=== PATIENT | male | born 1945 | race Caucasian/White ===

== ENCOUNTER → 2016-02-21 | Outpatient (CLI) | payer OTHER ==
[~2016-02-21] VITALS: Ht 180.3 cm; Wt 78.0 kg
[~2016-02-21] MED LIST: ANALGESIC325 M1 PO; ASPIR-MOX 325325 M1 PO; ASPIRIN E.C.81 M1 PO; ASPIRIN81 M1 PO; COREG12.5 M1 PO; CYCLOBENZAPRINE10 MG PO; ECOTRIN325 MG PO; Habitrol,Nicoderm CQ TD; LIPITOR20 MG PO; LISINOPRIL40 MG PO; LOPRESSOR100 M1 PO; LOPRESSOR25 MG PO; Lasix PO; METOPROLOL TART50 MG PO; NOHOMEMEDS; NORVASC5 MG PO; PRAVASTATIN SOD20 MG PO; ROCEPHIN 2 GM VI2 GM IV; TRAMADOL HCL50 MG PO; Zestril,Prinivil PO
== END | disposition home or self-care (01) ==
LOC: AMB 14:46
DX: D64.9 Anemia, unspecified (principal); K22.70 Barrett's esophagus without dysplasia; K25.9 Gastric ulcer, unspecified as acute or chronic, without hemorrhage or perforation; K29.90 Gastroduodenitis, unspecified, without bleeding; K62.5 Hemorrhage of anus and rectum; C20 Malignant neoplasm of rectum; D12.5 Benign neoplasm of sigmoid colon; I25.10 Atherosclerotic heart disease of native coronary artery without angina pectoris; Z95.1 Presence of aortocoronary bypass graft; I10 Essential (primary) hypertension; F17.200 Nicotine dependence, unspecified, uncomplicated
CPT/HCPCS: 88305; 88342 TC; B4087; J2250; J3010

== ENCOUNTER 2016-04-13 08:31 | Emergency (ER) | payer OTHER ==
[~2016-04-13] VITALS: Ht 180.3 cm; Wt 74.0 kg
[2016-04-13 10:01] LABS: MCH 26.8 PG (29.0-34.0); MCHC 32.7 G/DL (30.0-36.0); MCV 81.9 FL (86-99); MEAN PLAT.VOLUME 9.5 uM^3 (9.0-12.4); PLATELET COUNT 160 K/uL (156-360); RBC DIS.WIDTH-CV 16.5 % (11.8-14.6); RBC DIS.WIDTH-SD 43.8 % (39-53); RED BLOOD COUNT 4.03 M/uL (4.00-5.50); WHITE BLOOD COUNT 4.7 K/uL (4.1-10.2)
[2016-04-13 10:02] LABS: EOSINOPHIL (%) 4.2 % (0-5); EOSINOPHIL COUNT 0.2 K/uL (0-0.3); IMMATURE GRANULOCYTE (%) 0.2 % (0.0-0.7); IMMATURE GRANULOCYTE COUNT 0.1 K/uL; LYMPHOCYTE COUNT 0.9 K/uL (1.0-2.8); MONOCYTE COUNT 0.8 K/uL (0-0.8); NEUTROPHIL (%) 61.1 % (45-76); NEUTROPHIL COUNT 2.9 K/uL (1.8-6.4)
[2016-04-13 10:07] LABS: INTER. NORMALIZED RATIO 1.1; PROTHROMBIN TIME 10.9 (9.2-11.2)
[2016-04-13 10:08] LABS: CHLORIDE 107 mEq/L (99-109); POTASSIUM 4.6 mEq/L (3.7-5.4); SODIUM 138 mEq/L (136-147)
[2016-04-13 10:10] LABS: GLUCOSE 109 mg/dL (70-99)
[2016-04-13 10:11] LABS: ANION GAP 8 MEQ/L (2-14)
[2016-04-13 10:12] LABS: TOTAL BILIRUBIN 0.5 mg/dL (0.0-1.0)
[2016-04-13 10:13] LABS: ALKALINE PHOSPHATASE 63 IU/L (3-129)
[2016-04-13 10:14] LABS: GFR ESTIMATE (CALCULATED) 43 mL/min/
[2016-04-13 10:15] LABS: DIRECT BILIRUBIN 0.2 mg/dL (0.0-0.3); UREA NITROGEN (BUN) 24 mg/dL (9-23)
[2016-04-13 10:17] LABS: LIPASE 15 U/L (1.0-51.0)
[2016-04-13 13:24] VITALS: BP 123/61
== END 2016-04-13 13:27 | disposition home or self-care (01) ==
LOC: EME → EDBD 08:31 → EME 13:27
PROVIDERS: Emergency Medicine
DX: K92.1 Melena (principal); C18.9 Malignant neoplasm of colon, unspecified; Z79.899 Other long term (current) drug therapy; E78.5 Hyperlipidemia, unspecified; I10 Essential (primary) hypertension; Z95.1 Presence of aortocoronary bypass graft; Z79.82 Long term (current) use of aspirin; F17.200 Nicotine dependence, unspecified, uncomplicated
CPT/HCPCS: 74176; 80048; 80076; 83690; 85025; 85610; 85730; 86850; 86900; 86901; 99281; 99284

== ENCOUNTER 2016-09-12 22:10 | Inpatient (IN) | payer OTHER ==
[~2016-09-12] VITALS: Ht 180.3 cm; Wt 83.7 kg
[~2016-09-12 22:10] MED LIST changes: +COLACE100 MG PO; +NORVASC10 MG PO; +PRAVACHOL20 MG PO
[2016-09-13 06:01] VITALS: BP 156/84
[2016-09-13 12:49] LABS: HEMATOCRIT 31.5 % (38.0-50.0); MCH 27.8 PG (29.0-34.0); MCHC 32.7 G/DL (30.0-36.0); MCV 85.1 FL (86-99); MEAN PLAT.VOLUME 9.6 uM^3 (9.0-12.4); RBC DIS.WIDTH-CV 15.2 % (11.8-14.6); RBC DIS.WIDTH-SD 46.7 % (39-53); WHITE BLOOD COUNT 10.5 K/uL (4.1-10.2)
[2016-09-13 12:51] LABS: PLATELET COUNT 141 K/uL (156-360)
[2016-09-13 14:40] VITALS: BP 147/67
[2016-09-13 18:22] LABS: HEMATOCRIT 34.8 % (38.0-50.0); MCH 26.7 PG (29.0-34.0); MCHC 31.9 G/DL (30.0-36.0); MCV 83.9 FL (86-99); MEAN PLAT.VOLUME 10.1 uM^3 (9.0-12.4); PLATELET COUNT 154 K/uL (156-360); RBC DIS.WIDTH-CV 14.8 % (11.8-14.6); RBC DIS.WIDTH-SD 45.3 % (39-53); RED BLOOD COUNT 4.15 M/uL (4.00-5.50); WHITE BLOOD COUNT 10.5 K/uL (4.1-10.2)
[2016-09-13 19:54] VITALS: BP 156/72
[2016-09-14] VITALS (9 sets, daily range): BP systolic 124–165; BP diastolic 54–74
[2016-09-14 06:46] LABS: HEMATOCRIT 33.9 % (38.0-50.0); MCH 27.5 PG (29.0-34.0); MCHC 32.7 G/DL (30.0-36.0); MCV 83.9 FL (86-99); MEAN PLAT.VOLUME 10.1 uM^3 (9.0-12.4); PLATELET COUNT 147 K/uL (156-360); RBC DIS.WIDTH-CV 14.7 % (11.8-14.6); RBC DIS.WIDTH-SD 45.4 % (39-53); RED BLOOD COUNT 4.04 M/uL (4.00-5.50)
[2016-09-14 07:17] LABS: ANION GAP 5 MEQ/L (2-14); CHLORIDE 101 MEQ/L (99-109); GFR ESTIMATE (CALCULATED) > 59 mL/min/; GLUCOSE 149 mg/dL (70-99); MAGNESIUM 1.6 mg/dl (1.3-2.7); POTASSIUM 4.3 MEQ/L (3.7-5.4); SAMPLE HEMOLYSIS CHECK 0; SAMPLE ICTERIC CHECK 0; SAMPLE LIPEMIA CHECK 0; SODIUM 135 MEQ/L (136-147); UREA NITROGEN (BUN) 11 mg/dL (9-23)
[2016-09-14 13:14] LABS: BASE EXCESS 2.1 mEq/L (-3 to +3); BICARBONATE 27.3 mEq/L (22-26); CARBOXY HGB 1.6 % (0-5); COMMENTS - BLOOD GASES A+C+; DEVICE NRBR; FI02 100 %; METHEMOGLOBIN 1.4 % (0-1.5); O2 FLOW 15 L/MIN; PCO2 44 mm Hg (35-45); PO2 89 mm Hg (80-100); SITE RRA
[2016-09-14 13:15] LABS: TOTAL RESP RATE 20 resp/min
[2016-09-14 13:26] LABS: HEMATOCRIT 32.2 % (38.0-50.0); MCH 28.1 PG (29.0-34.0); MCHC 33.5 G/DL (30.0-36.0); MCV 83.6 FL (86-99); MEAN PLAT.VOLUME 9.8 uM^3 (9.0-12.4); PLATELET COUNT 143 K/uL (156-360); RBC DIS.WIDTH-CV 15.1 % (11.8-14.6); RBC DIS.WIDTH-SD 45.6 % (39-53); RED BLOOD COUNT 3.85 M/uL (4.00-5.50)
[2016-09-14 13:36] LABS: ANION GAP 6 MEQ/L (2-14); CHLORIDE 102 MEQ/L (99-109); POTASSIUM 4.4 MEQ/L (3.7-5.4); SAMPLE HEMOLYSIS CHECK 0; SAMPLE ICTERIC CHECK 0; SAMPLE LIPEMIA CHECK 0; SODIUM 136 MEQ/L (136-147); TOTAL BILIRUBIN 0.6 MG/DL (0.0-1.0)
[2016-09-14 13:42] LABS: ALKALINE PHOSPHATASE 58 IU/L (3-129); GFR ESTIMATE (CALCULATED) > 59 mL/min/; GLUCOSE 115 mg/dL (70-99); UREA NITROGEN (BUN) 9 mg/dL (9-23)
[2016-09-14 13:46] LABS: TROP-I INTERPRETATION NEGATIVE; TROPONIN-I 0.02 ng/mL (0.0-0.30)
[2016-09-14 14:57] LABS: METH RESISTANT S AUREUS PCR NEGATIVE (NEGATIVE)
[2016-09-14 15:03] LABS: PROBE CHECK PASS; SPECIMEN PROCESSING CONTROL PASS
[2016-09-15] VITALS (15 sets, daily range): BP systolic 106–167; BP diastolic 53–76
[2016-09-15 05:58] LABS: HEMATOCRIT 31.2 % (38.0-50.0); MCH 26.8 PG (29.0-34.0); MCHC 32.1 G/DL (30.0-36.0); MCV 83.6 FL (86-99); MEAN PLAT.VOLUME 10.3 uM^3 (9.0-12.4); PLATELET COUNT 133 K/uL (156-360); RBC DIS.WIDTH-CV 14.7 % (11.8-14.6); RBC DIS.WIDTH-SD 45.2 % (39-53); RED BLOOD COUNT 3.73 M/uL (4.00-5.50); WHITE BLOOD COUNT 7.5 K/uL (4.1-10.2)
[2016-09-15 06:30] LABS: ANION GAP 6 MEQ/L (2-14); CHLORIDE 102 MEQ/L (99-109); GFR ESTIMATE (CALCULATED) > 59 mL/min/; GLUCOSE 105 mg/dL (70-99); MAGNESIUM 1.7 mg/dl (1.3-2.7); POTASSIUM 3.6 MEQ/L (3.7-5.4); SAMPLE HEMOLYSIS CHECK 0; SAMPLE ICTERIC CHECK 0; SAMPLE LIPEMIA CHECK 0; SODIUM 137 MEQ/L (136-147); UREA NITROGEN (BUN) 7 mg/dL (9-23)
[2016-09-16] VITALS (21 sets, daily range): BP systolic 101–145; BP diastolic 57–72
[2016-09-16 05:56] LABS: EOSINOPHIL (%) 1.2 % (0-5); EOSINOPHIL COUNT 0.1 K/uL (0-0.3); HEMATOCRIT 31.8 % (38.0-50.0); IMMATURE GRANULOCYTE (%) 0.9 % (0.0-0.7); IMMATURE GRANULOCYTE COUNT 0.1 K/uL; INSTRUMENT ABS NEUTROPHIL CT 4.9 K/uL; LYMPHOCYTE COUNT 0.6 K/uL (1.0-2.8); MCH 26.5 PG (29.0-34.0); MCHC 32.1 G/DL (30.0-36.0); MCV 82.6 FL (86-99); MEAN PLAT.VOLUME 9.8 uM^3 (9.0-12.4); MONOCYTE (%) 14.8 % (3-12); NEUTROPHIL (%) 73.7 % (45-76); NEUTROPHIL COUNT 4.9 K/uL (1.8-6.4); PLATELET COUNT 147 K/uL (156-360); RBC DIS.WIDTH-CV 14.7 % (11.8-14.6); RBC DIS.WIDTH-SD 44.9 % (39-53); RED BLOOD COUNT 3.85 M/uL (4.00-5.50); WHITE BLOOD COUNT 6.6 K/uL (4.1-10.2)
[2016-09-16 06:22] LABS: ANION GAP 7 MEQ/L (2-14); CHLORIDE 104 MEQ/L (99-109); GFR ESTIMATE (CALCULATED) > 59 mL/min/; GLUCOSE 100 mg/dL (70-99); POTASSIUM 3.8 MEQ/L (3.7-5.4); SAMPLE HEMOLYSIS CHECK 0; SAMPLE ICTERIC CHECK 0; SAMPLE LIPEMIA CHECK 0; SODIUM 137 MEQ/L (136-147); UREA NITROGEN (BUN) 10 mg/dL (9-23)
[2016-09-17] VITALS (13 sets, daily range): BP systolic 87–133; BP diastolic 53–71
[2016-09-17 06:13] LABS: HEMATOCRIT 32.6 % (38.0-50.0); MCH 27.9 PG (29.0-34.0); MCHC 33.4 G/DL (30.0-36.0); MCV 83.4 FL (86-99); MEAN PLAT.VOLUME 10.1 uM^3 (9.0-12.4); PLATELET COUNT 177 K/uL (156-360); RBC DIS.WIDTH-CV 14.6 % (11.8-14.6); RBC DIS.WIDTH-SD 44.5 % (39-53); RED BLOOD COUNT 3.91 M/uL (4.00-5.50); WHITE BLOOD COUNT 5.3 K/uL (4.1-10.2)
[2016-09-17 06:41] LABS: ANION GAP 9 MEQ/L (2-14); CHLORIDE 103 MEQ/L (99-109); GFR ESTIMATE (CALCULATED) 49 mL/min/; GLUCOSE 107 mg/dL (70-99); POTASSIUM 3.8 MEQ/L (3.7-5.4); SAMPLE HEMOLYSIS CHECK 0; SAMPLE ICTERIC CHECK 0; SAMPLE LIPEMIA CHECK 0; SODIUM 135 MEQ/L (136-147); UREA NITROGEN (BUN) 17 mg/dL (9-23)
[2016-09-17 06:46] LABS: MAGNESIUM 2.1 mg/dl (1.3-2.7)
[2016-09-18] VITALS (12 sets, daily range): BP systolic 117–157; BP diastolic 55–99
[2016-09-18 04:47] LABS: HEMATOCRIT 30.4 % (38.0-50.0); MCH 26.7 PG (29.0-34.0); MCHC 32.2 G/DL (30.0-36.0); MCV 82.8 FL (86-99); MEAN PLAT.VOLUME 9.3 uM^3 (9.0-12.4); PLATELET COUNT 150 K/uL (156-360); RBC DIS.WIDTH-CV 14.4 % (11.8-14.6); RBC DIS.WIDTH-SD 43.7 % (39-53); RED BLOOD COUNT 3.67 M/uL (4.00-5.50); WHITE BLOOD COUNT 5.5 K/uL (4.1-10.2)
[2016-09-18 04:59] LABS: CHLORIDE 110 mEq/L (99-109); POTASSIUM 4.1 mEq/L (3.7-5.4); SODIUM 138 mEq/L (136-147)
[2016-09-18 05:00] LABS: GLUCOSE 99 mg/dL (70-99)
[2016-09-18 05:02] LABS: ANION GAP 6 MEQ/L (2-14)
[2016-09-18 05:04] LABS: GFR ESTIMATE (CALCULATED) > 59 mL/min/
[2016-09-18 05:05] LABS: UREA NITROGEN (BUN) 17 mg/dL (9-23)
[2016-09-19] VITALS (9 sets, daily range): BP systolic 119–154; BP diastolic 53–69
[2016-09-19 05:29] LABS: MCH 26.9 PG (29.0-34.0); MCHC 32.5 G/DL (30.0-36.0); MCV 82.8 FL (86-99); MEAN PLAT.VOLUME 9.6 uM^3 (9.0-12.4); PLATELET COUNT 171 K/uL (156-360); RBC DIS.WIDTH-CV 14.4 % (11.8-14.6); RBC DIS.WIDTH-SD 43.2 % (39-53); RED BLOOD COUNT 3.38 M/uL (4.00-5.50); WHITE BLOOD COUNT 5.8 K/uL (4.1-10.2)
[2016-09-19 05:51] LABS: ANION GAP 7 MEQ/L (2-14); CHLORIDE 111 MEQ/L (99-109); GFR ESTIMATE (CALCULATED) > 59 mL/min/; GLUCOSE 96 mg/dL (70-99); SAMPLE HEMOLYSIS CHECK 0; SAMPLE ICTERIC CHECK 0; SAMPLE LIPEMIA CHECK 0; SODIUM 140 MEQ/L (136-147); UREA NITROGEN (BUN) 9 mg/dL (9-23)
[2016-09-20 03:16] VITALS: BP 118/58
[2016-09-20 06:53] LABS: MCH 26.9 PG (29.0-34.0); MCHC 32.4 G/DL (30.0-36.0); MCV 82.9 FL (86-99); MEAN PLAT.VOLUME 9.2 uM^3 (9.0-12.4); PLATELET COUNT 190 K/uL (156-360); RBC DIS.WIDTH-CV 14.4 % (11.8-14.6); RBC DIS.WIDTH-SD 43.8 % (39-53); WHITE BLOOD COUNT 4.3 K/uL (4.1-10.2)
[2016-09-20 07:12] LABS: ANION GAP 7 MEQ/L (2-14); CHLORIDE 109 MEQ/L (99-109); GFR ESTIMATE (CALCULATED) > 59 mL/min/; GLUCOSE 101 mg/dL (70-99); POTASSIUM 3.8 MEQ/L (3.7-5.4); SAMPLE HEMOLYSIS CHECK 0; SAMPLE ICTERIC CHECK 0; SAMPLE LIPEMIA CHECK 0; SODIUM 138 MEQ/L (136-147); UREA NITROGEN (BUN) 5 mg/dL (9-23)
[2016-09-20 08:24] VITALS: BP 132/67
[2016-09-20 11:19] VITALS: BP 125/66
[2016-09-20 15:33] VITALS: BP 129/63
[2016-09-20 19:47] VITALS: BP 117/65
[2016-09-20 23:44] VITALS: BP 123/65
[2016-09-21 06:45] LABS: HEMATOCRIT 28.2 % (38.0-50.0); MCH 27.6 PG (29.0-34.0); MCHC 33.3 G/DL (30.0-36.0); MCV 82.9 FL (86-99); PLATELET COUNT 216 K/uL (156-360); RBC DIS.WIDTH-CV 14.6 % (11.8-14.6); RBC DIS.WIDTH-SD 44.5 % (39-53); WHITE BLOOD COUNT 4.6 K/uL (4.1-10.2)
[2016-09-21 07:09] LABS: ANION GAP 6 MEQ/L (2-14); CHLORIDE 109 MEQ/L (99-109); GFR ESTIMATE (CALCULATED) > 59 mL/min/; GLUCOSE 87 mg/dL (70-99); POTASSIUM 3.9 MEQ/L (3.7-5.4); SAMPLE HEMOLYSIS CHECK 0; SAMPLE ICTERIC CHECK 0; SAMPLE LIPEMIA CHECK 0; SODIUM 139 MEQ/L (136-147); UREA NITROGEN (BUN) 5 mg/dL (9-23)
[2016-09-21 07:55] VITALS: BP 123/58
[2016-09-21 15:00] VITALS: BP 108/55
[2016-09-21 21:04] VITALS: BP 118/59
[2016-09-22 00:21] VITALS: BP 118/57
[2016-09-22 07:45] VITALS: BP 115/56
[2016-09-22] MEDS ORDERED: VENTOLIN HFA18 GM IH (11:27)
[2016-09-22] MEDS ORDERED: TAMSULOSIN HCL0.4 MG PO (11:27)
[2016-09-22] MEDS ORDERED: NORCO 5/3251 TABLET PO (11:27)
[2016-09-22 16:26] VITALS: BP 113/62
[2016-09-23 00:45] VITALS: BP 110/55
[2016-09-23 07:50] VITALS: BP 115/56
== END 2016-09-23 14:05 | disposition home or self-care (01) | DRG 329 ==
LOC: ENRESERV 22:10 → 2EAST 09-13 05:22 → 4WEST 09-13 05:22 → 2SOUTH 09-13 05:22 → ENRESERV 09-13 13:31 → 2EAST 09-13 14:33 → 2SOUTH 09-13 16:00 → 4WEST 09-14 13:25 → ENRESERV 09-17 17:02 → CANRESERV 09-17 19:02 → ENRESERV 09-19 08:38 → 2EAST 09-19 14:13
PROVIDERS: Internal Medicine; Physician Assistant; Surgery
DX: C20 Malignant neoplasm of rectum (principal); J96.01 Acute respiratory failure with hypoxia; K56.7 Ileus, unspecified; J44.1 Chronic obstructive pulmonary disease with (acute) exacerbation; J90 Pleural effusion, not elsewhere classified; J98.11 Atelectasis; E78.5 Hyperlipidemia, unspecified; F17.210 Nicotine dependence, cigarettes, uncomplicated; E78.00 Pure hypercholesterolemia, unspecified; I25.10 Atherosclerotic heart disease of native coronary artery without angina pectoris; R33.9 Retention of urine, unspecified; Z92.21 Personal history of antineoplastic chemotherapy; Z85.048 Personal history of other malignant neoplasm of rectum, rectosigmoid junction, and anus; Z92.3 Personal history of irradiation; Z95.1 Presence of aortocoronary bypass graft; I73.9 Peripheral vascular disease, unspecified; I45.10 Unspecified right bundle-branch block; K57.90 Diverticulosis of intestine, part unspecified, without perforation or abscess without bleeding; I10 Essential (primary) hypertension
CPT/HCPCS: 36415; 36600; 71010; 71275; 74178; 80048; 80053; 82140; 82570; 82803; 83605; 83735; 83880; 84100; 84484; 85025; 85027; 85384; 85610; 85730; 86900; 86901; 86920; 87641; 88302; 88309; 93005; 94640; 94640 76; 94667; 94668; 94760; 94799; 97530 GO; 99202; J0131; J0295; J1100; J1170; J1335; J1650; J1885; J2250; J2405; J2710; J3010; J3475; J3480; J7030; J7050; J7120; P9045; P9047

== ENCOUNTER → 2016-10-06 | Outpatient (CLI) | payer OTHER ==
[~2016-10-06] MED LIST changes: +DURAGESIC12 MCG TD; +NORCO 5/3251 TABLET PO; +TAMSULOSIN HCL0.4 MG PO; +VENTOLIN HFA18 GM IH
[2016-10-06 10:00] LABS: INTER. NORMALIZED RATIO 1.2
[2016-10-06 10:02] LABS: PTT 33.6 SEC (25-37)
== END | disposition home or self-care (01) ==
LOC: OPR 09:25 → EDSTATUS 10:00 → OPR 10:00
PROVIDERS: Surgery
PROC: 0J9730Z Drainage of Back Subcutaneous Tissue and Fascia with Drainage Device, Percutaneous Approach (ICD-10-PCS; principal; 2016-10-06)
DX: K65.1 Peritoneal abscess (principal)
CPT/HCPCS: 77012; 85610; 85730; 87070; 87075; 87076; 87185; 87205; C1769; J3010

== ENCOUNTER 2016-11-01 12:47 | Day surgery (SDC) | payer OTHER ==
[~2016-11-01] VITALS: Ht 180.3 cm; Wt 74.4 kg
[~2016-11-01 12:47] MED LIST changes: +ROXICODONE5 MG PO; +STOOL SOFTENER100 MG PO
[2016-11-01 13:22] LABS: HEMATOCRIT 27.9 % (38.0-50.0); MCV 79.9 FL (86-99)
[2016-11-01] MEDS ORDERED: SENNA-S TABLET1 EACH PO (13:22)
[2016-11-01 13:23] VITALS: BP 119/60
[2016-11-01 14:07] LABS: INTER. NORMALIZED RATIO 1.2; PROTHROMBIN TIME 13.2 SEC (10.2-12.9)
[2016-11-01 14:09] LABS: PTT 32.5 SEC (25-37)
[2016-11-01 15:00] LABS: PLATELET COUNT 334 K/uL (156-360)
[2016-11-01 18:31] VITALS: BP 145/63
[2016-11-01 19:20] VITALS: BP 121/60
== END 2016-11-01 19:30 | disposition home or self-care (01) ==
LOC: SDC 12:47
PROVIDERS: Surgery
DX: I87.8 Other specified disorders of veins (principal); C20 Malignant neoplasm of rectum; I10 Essential (primary) hypertension; E78.5 Hyperlipidemia, unspecified; Z95.1 Presence of aortocoronary bypass graft; F17.210 Nicotine dependence, cigarettes, uncomplicated; Z80.0 Family history of malignant neoplasm of digestive organs
CPT/HCPCS: 71010; 85014; 85018; 85049; 85610; 85730; C1751; J0690; J2250; J2405; J3010

== ENCOUNTER → 2017-08-15 | Outpatient (CLI) | payer OTHER ==
[~2017-08-15] MED LIST changes: +ASPIRIN81 M2 PO; +SENNA-S TABLET1 EACH PO
== END | disposition home or self-care (01) ==
LOC: AMB 10:22
DX: Z45.2 Encounter for adjustment and management of vascular access device (principal); Z85.048 Personal history of other malignant neoplasm of rectum, rectosigmoid junction, and anus; Z92.21 Personal history of antineoplastic chemotherapy; L82.1 Other seborrheic keratosis
CPT/HCPCS: 88305